=== PATIENT | male | born 1970 | race Two or more races ===

== ENCOUNTER 2020-04-01 06:40 | Day surgery (SDC) | payer OTHER ==
[~2020-04-01] VITALS: Ht 180.3 cm; Wt 104.3 kg
[2020-04-01] VITALS (10 sets, daily range): BP systolic 123–159; BP diastolic 89–116
[~2020-04-01 06:40] MED LIST: ASPIR 8181 MG ORAL; ATORVASTATIN CA40 MG ORAL; METOPROLOL SUCC25 MG ORAL
[2020-04-01] MEDS ORDERED: LR 1000ml ONE (06:41)
[2020-04-01] MEDS ORDERED: fentaNYL 100 mcg/2 mL IV ONE (07:24)
[2020-04-01] MEDS ORDERED: Midazolam 2mg/2ml Inj ONE (07:24)
[2020-04-01] MEDS ORDERED: LR 1000ml 1,000 ML IVLG SCH (07:49)
--- NOTE | 2020-04-01 07:49 | Anethesia Preoperative Eval ---
Anesthesia Pre-op PMH/ROS General Date of Evaluation: Apr 01, 2020 Time of Evaluation: 07:46 Anesthesiologist: Safia ASA Score: ASA 2 Mallampati Score Class I : Soft palate, uvula, fauces, pillars visible Class II: Soft palate, uvula, fauces visible Class III: Soft palate, base of uvula visible Class IV: Only hard plate visible Mallampati Classification: Class II Surgeon: Irma Diagnosis: GERD Surgical Procedure: EGD Colonoscopy Anesthesia History: none Family History: no anesthesia problems Allergies: Coded Allergies: No Known Allergies (Unverified , 03/31/20) Medications: see eMAR Patient NPO?: Yes Past Medical History Cardiovascular: Reports: HTN, CAD - [place] ?; Denies: [place], valve dz, arrhythmia, other Pulmonary: Reports: KRZYSZTOF; Denies: asthma, COPD, other Gastrointestinal/Genitourinary: Reports: GERD; Denies: CRI, ESRD, other Neurologic/Psychiatric: Reports: depression/anxiety; Denies: dementia, CVA, TIA, other Endocrine: Denies: DM, hypothyroidism, steroids, other HEENT: Denies: cataract (L), cataract (R), glaucoma, TIMBI-SHA SHOSHONE (L), TIMBI-SHA SHOSHONE (R), other Hematology/Immune: Denies: anemia, DVT, bleeding disorder, other Musculoskeletal/Integumentary: Denies: OA, RA, DJD, DDD, edema, other Other: obesity PMH Narrative: as above PSxH Narrative: Spine Sx Anesthesia Pre-op Phys. Exam Physician Exam Last Vital Signs Date Time Temp Pulse Resp B/P (MAP) Pulse Ox O2 Delivery O2 Flow Rate FiO2 04/01/20 07:10 97.7 78 18 131/95 97 Room Air Constitutional: NAD Cardiovascular: RRR, no M/R/G Respiratory: CTA Gastrointestinal: S/NT/ND Airway Exam Mallampati Score: Class II MO: full Neck: flexible ROM: full Teeth: intact Dentures: no upper, no lower Anesthesia Pre-op A/P Studies Pre-op Studies: EKG - SR Risk Assessment & Plan Assessment: ASA 2 Plan: MAC Status Change Before Surgery: No Ortiz Baig MD Apr 01, 2020 07:49
[2020-04-01] MEDS ORDERED: fentaNYL 100 mcg/2 mL IV PRN (08:00)
--- NOTE | 2020-04-01 08:07 | Pre-Procedure Note/Attestation ---
Pre-Procedure Note/Attestation Complete Prior to Procedure Planned Procedure: not applicable Procedure Narrative: esophagogastroduodenoscopy colon Indications for Procedure Pre-Operative Diagnosis: gerd screen Attestation I attest that I discussed the nature of the procedure; its benefits; risks and complications; and alternatives (and the risks and benefits of such alternatives ), prior to the procedure, with the patient (or the patient's legal bank representative). I attest that, if there was a reasonable possibility of needing a blood transfusion, the patient (or the patient's legal bank representative) was given the [facility] standardized written summary, pursuant to the [place] Blood Safety Act ([place] Health and Safety Code # 1645, as amended). I attest that I re-evaluated the patient just prior to the surgery and that there has been no change in the patient's H&P, except as documented below: Wu Ho MD Apr 01, 2020 08:07
--- NOTE | 2020-04-01 08:07 | Short Stay Surgery H&P ---
History of Present Illness History of Present Illness Chief Complaint see typed note HPI Josse Adamson is a 49 year old male who was admitted on for Colon Screening, Gerd Patient History Allergies: Coded Allergies: No Known Allergies (Unverified , 03/31/20) Medication History Scheduled Aspirin* (Aspir 81*), 81 MG ORAL DAILY, (Reported) Atorvastatin Calcium* (Atorvastatin Calcium*), 40 MG ORAL BEDTIME, (Reported) Metoprolol Succinate* (Metoprolol Succinate*), 25 MG ORAL DAILY, (Reported) Physical Exam Vital Signs Last Vital Signs Date Time Temp Pulse Resp B/P (MAP) Pulse Ox O2 Delivery O2 Flow Rate FiO2 04/01/20 07:10 97.7 78 18 131/95 97 Room Air Plan Attestation Are the patient's medical conditions optimized for surgery? Wu Ho MD Apr 01, 2020 08:07
--- NOTE | 2020-04-01 08:43 | Endoscopy Procedure Note ---
Endoscopy Procedure Note General Indication for Procedure: gerd symptoms screening colon Procedures Performed: EGD, colonoscopy Operative Findings/Diagnosis: proximal gastritis Specimen: yes Pt Tolerated Procedure Well: Yes Estimated Blood Loss: none Anesthesia Anesthesiologist: MD Kaylan Anesthesia: MAC Medications Medication Given: see anesthesia record Inserted Devices Implant(s) used?: No GI Core Measures 50 yrs or older w/o bx or poly: Yes 10yrs. F/U recommended: Yes If not recommended, why?: 18 years or older w/prev. colo: No <3yrs. since last colonoscopy: No Med reason:<3 yrs.: System Reason:<3 yrs.: Last colonoscopy >= to 3yrs: Yes Wu Ho MD Apr 01, 2020 08:43
--- NOTE | 2020-04-01 08:44 | Brief Operative Note ---
Immediate Post Operative Note Operative Note Chief Complaint: GERD screen Pre-op Diagnosis: gerd screen Procedure: esophagogastroduodenoscopy bx, colon Post-op Diagnosis: prox gastritis Surgeon: jose Anesthesiologist: Kaylan Anesthesia: MAC Specimen: yes Complications: none Condition: stable Fluids: per anesthesia Estimated Blood Loss: none Drains: none Implant(s) used?: No Wu Ho MD Apr 01, 2020 08:44
[2020-04-01] MEDS ORDERED: Labetalol 5mg/ml 20ml vial IV ONE ×2 (08:53→09:00)
--- NOTE | 2020-04-01 08:54 | Immediate Post-Op Evaluation ---
Immediate Post-Op Evalulation Immediate Post-Op Evalulation Procedure: EGD Colonoscopy Date of Evaluation: Apr 01, 2020 Time of Evaluation: 08:53 IV Fluids: 700 Blood Products: none Estimated Blood Loss: none Urinary Output: none Blood Pressure Systolic: 156 Blood Pressure Diastolic: 90 Pulse Rate: 78 Respiratory Rate: 20 O2 Sat by Pulse Oximetry: 98 Temperature (Fahrenheit): 97.8 Pain Score (1-10): 1 Nausea: No Vomiting: No Complications none Patient Status: awake, patent, none Hydration Status: adequate Ortiz Baig MD Apr 01, 2020 08:54
--- NOTE | 2020-04-01 10:00 | 48 Hour Post Anesthesia Eval ---
Post Anesthesia Evaluation Procedure: EGD Colonoscopy Date of Evaluation: Apr 01, 2020 Time of Evaluation: 09:59 Blood Pressure Systolic: 142 0: 96 Pulse Rate: 68 Respiratory Rate: 18 Temperature (Fahrenheit): 97.6 O2 Sat by Pulse Oximetry: 98 Airway: patent Nausea: No Vomiting: No Pain Intensity: 1 Hydration Status: adequate Cardiopulmonary Status: stable Mental Status/LOC: patient returned to baseline Follow-up Care/Observations: n/a Post-Anesthesia Complications: none Follow-up care needed: ready to discharge Ortiz Baig MD Apr 01, 2020 10:00
--- NOTE | 2020-04-01 17:45 | Operative Note - Dictated ---
DATE OF OPERATION: 04/01/2020 GASTROENTEROLOGY PROCEDURE REPORT PROCEDURE: Upper gastrointestinal endoscopy with biopsy as well as colonoscopy. SURGEON: Wu Ho MD. ANESTHESIA: Ortiz Baig MD. PRE-ENDOSCOPIC DIAGNOSES: 1. Symptoms of gastroesophageal reflux disease. 2. Need for screening colonoscopy. PROCEDURES: The procedures, their risks, indications, alternatives, and possible complications, including but not limited to, bleeding, infection, perforation, , and anesthesia complications were explained to the patient and/or responsible republican and an informed consent was obtained. Time out was announced immediately prior to the procedure. The patient was sedated in the left lateral decubitus position and the upper endoscope was introduced into the oropharynx and advanced to the 3rd portion of the duodenum without difficulty. The endoscope was then gradually withdrawn and the mucosa were examined carefully. Views included retroflex view of the stomach. Examination of the upper gastrointestinal mucosa revealed the findings listed. Endoscopic treatments or biopsies, if any, are also listed under "findings and treatments" section. The patient was then turned around while in the left lateral decubitus position and a rectal exam was performed. The colonoscope was then introduced into the rectum and advanced to the cecum without difficulty. The cecum was identified by the appearance of ileocecal valve and the appendiceal orifice. Cecal position was further verified by palpation and translumination. The colonoscope was then gradually withdrawn and the mucosa were examined carefully. Examination was concluded with a retroflex view of the rectum. Examination of the colonic mucosa revealed the findings listed. Terminal ileum intubation and findings, if performed, are listed. The patient was left to recover in stable condition. POST-ENDOSCOPIC DIAGNOSES: 1. Two small findings of esophageal inlet patch. 2. Proximal nonerosive gastritis in the fundus of the stomach. 3. Status post random biopsies of the antrum, fundus, lower esophagus, and mid esophagus. 4. Normal terminal ileum for about 5 to 10 cm. 5. Normal colonic mucosa with no evidence of polyps. RECOMMENDATIONS: 1. Follow up biopsy results. 2. Check and treat Helicobacter pylori if positive. 3. Outpatient followup. Wu Ho M.D. DR: ISABEL JOB#: [id number] CC: SYEDA
== END 2020-04-01 10:05 | disposition home or self-care (01) ==
LOC: GAS 06:40
DX: Z12.11 Encounter for screening for malignant neoplasm of colon (principal); K21.9 Gastro-esophageal reflux disease without esophagitis; K29.70 Gastritis, unspecified, without bleeding; Z79.82 Long term (current) use of aspirin; I11.9 Hypertensive heart disease without heart failure; I25.10 Atherosclerotic heart disease of native coronary artery without angina pectoris; G47.33 Obstructive sleep apnea (adult) (pediatric); F41.9 Anxiety disorder, unspecified; F32.9 Major depressive disorder, single episode, unspecified; E66.9 Obesity, unspecified; Z68.32 Body mass index [BMI] 32.0-32.9, adult
CPT/HCPCS: 43239; 45378; 94003; J2250; J2704; J3010; J7120; 94150